=== PATIENT | female | born 1975 | race Caucasian/White ===

== ENCOUNTER 2017-01-08 14:20 | Emergency (ER) | payer BC ==
[~2017-01-08] VITALS: Ht 162.6 cm; Wt 95.7 kg
[~2017-01-08 14:20] MED LIST: ASPI81TA50 PO; CHOL500016 PO; DULA0.75 SQ; IBUP800T PO; INSU100I17 SQ; INSU300I SQ; LISI10TA2 PO; METF500T4 PO; NAPR550T3 PO; OXYB10TA PO; PRAV10TA2 PO; PROM25TA10 PO; SUCR1TAB29 PO; VENL37.5 PO; VENL37.56 PO; ZOLP10TA PO
--- NOTE | 2017-01-08 14:57 | EKG ---
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
--- NOTE | 2017-01-08 14:59 | ED.ADGEN ---
Past History Past Medical History: Dementia, Hypertension Past Surgical History: , Hysterectomy Alcohol Use: None Drug Use: None Adult General Chief Complaint Chief Complaint "doesn't feel good" HPI HPI Patient is a 41 year old female who presents with 1 week of symptoms including cough, sore throat, epigastric pressure with laying flat and cough. She denies known fevers, reports nausea without vomiting. No change in BM, no significant headaches. Denies any fevers. Seen at [facility] on Friday and diagnosed with influenza (reports rapid flu was negative). She initially felt better after the tamiflu, but then again worsened the following day. The codeine cough medicine did not significantly help her cough. Review of Systems Review of Systems Constitutional: Denies fever or chills [] Eyes: Denies change in visual acuity, redness, or eye pain [] HENT: per hpi Respiratory: Denies shortness of breath [] Cardiovascular: per hpi GI: Denies vomiting, bloody stools or diarrhea [] : Denies dysuria or hematuria [] Musculoskeletal: Denies back pain or joint pain [] Integument: Denies rash or skin lesions [] Neurologic: Denies focal weakness or sensory changes [] Current Medications Current Medications Current Medications Medications (Trade) Dose Ordered Sig/Shweta Start Time Stop Time Status Last Admin Dose Admin Ketorolac Tromethamine 30 mg 30 mg 1X ONCE 01/08/17 15:15 01/08/17 15:16 DC 01/08/17 15:10 30 MG Sodium Chloride (Iv Sodium Chloride 0.9% 1,000ml) 1,000 ml @ 1,000 mls/hr 1X ONCE 01/08/17 15:15 01/08/17 16:14 01/08/17 15:11 1,000 MLS/HR Allergies Allergies Allergies Coded Allergies Type Severity Reaction Last Updated Verified meperidine Allergy Intermediate Itching 07/18/16 Yes morphine Allergy Intermediate Itching 07/18/16 Yes Uncoded Allergies Type Severity Reaction Last Updated Verified unknown old migrane med Allergy Unknown Unknown 07/11/16 Physical Exam Physical Exam Constitutional: Well developed, well nourished, no acute distress, ill-appearing , non-toxic appearance. obese HENT: Normocephalic, atraumatic, bilateral external ears normal, oropharynx slightly dry, uvula rises midline, no edema, no oral exudates, nose normal. [] Eyes: PERRLA, EOMI, conjunctiva normal, no discharge. [] Neck: Normal range of motion, no tenderness, supple, no stridor. [] Cardiovascular:Heart rate regular at 95 bpm with regular rhythm, no murmur [] Lungs & Thorax: Bilateral breath sounds clear to auscultation , no wheeze, crackles or rhonchi Abdomen: Bowel sounds normal, soft, no tenderness, no masses, no pulsatile masses, no guarding or peritoneal signs Skin: Warm, dry, no erythema, no rash. [] Back: No tenderness, no CVA tenderness. [] Extremities: No tenderness, no cyanosis, no clubbing, ROM intact, no edema. [] Neurologic: Alert and oriented X 3, normal motor function, normal sensory function, no focal deficits noted. [] Current Patient Data Vital Signs Vital Signs Date Time Temp Pulse Resp B/P Pulse Ox O2 Delivery O2 Flow Rate FiO2 01/08/17 14:45 98.2 115 20 98 Lab Results Laboratory Tests Test 01/08/17 15:04 White Blood Count 4.9x10^3/uL (4.0-11.0) Red Blood Count 4.44x10^6/uL (3.50-5.40) Hemoglobin 12.6g/dL (12.0-15.5) Hematocrit 38.1% (36.0-47.0) Mean Corpuscular Volume 86fL (79-100) Mean Corpuscular Hemoglobin 28pg (25-35) Mean Corpuscular Hemoglobin Concent 33g/dL (31-37) Red Cell Distribution Width 14.3% (11.5-14.5) Platelet Count 244x10^3/uL (140-400) Neutrophils (%) (Auto) 52% (31-73) Lymphocytes (%) (Auto) 37% (24-48) Monocytes (%) (Auto) 8% (0-9) Eosinophils (%) (Auto) 2% (0-3) Basophils (%) (Auto) 1% (0-3) Neutrophils # (Auto) 2.6x10^3uL (1.8-7.7) Lymphocytes # (Auto) 1.8x10^3/uL (1.0-4.8) Monocytes # (Auto) 0.4x10^3/uL (0.0-1.1) Eosinophils # (Auto) 0.1x10^3/uL (0.0-0.7) Basophils # (Auto) 0.0x10^3/uL (0.0-0.2) Sodium Level 139mmol/L (136-145) Potassium Level 4.3mmol/L (3.5-5.1) Chloride Level 100mmol/L (98-107) Carbon Dioxide Level 23mmol/L (21-32) Anion Gap 16 (6-14) H Blood Urea Nitrogen 9mg/dL (7-20) Creatinine 0.8mg/dL (0.6-1.0) Estimated GFR (Cockcroft-Gault) 78.7 BUN/Creatinine Ratio 11 (6-20) Glucose Level 297mg/dL (70-99) H Calcium Level 9.2mg/dL (8.5-10.1) Total Bilirubin 0.6mg/dL (0.2-1.0) Aspartate Amino Transferase (AST) Pending Alanine Aminotransferase (ALT) 54U/L (14-59) Alkaline Phosphatase 119U/L (46-116) H Total Protein 7.4g/dL (6.4-8.2) Albumin 4.1g/dL (3.4-5.0) Albumin/Globulin Ratio 1.2 (1.0-1.7) Lipase 142U/L (73-393) EKG EKG 91 bpm, sinus, normal axis, normal intervals, no ST elevation or depression, T waves nonischemic. Interpreted by me.[] Radiology/Procedures Radiology/Procedures CXR 2 view: IMPRESSION: No acute cardiopulmonary abnormality is detected. Course & Med Decision Making Course & Med Decision Making Pertinent Labs and Imaging studies reviewed. (See chart for details) Pt given IV fluids and toradol. IV labs and urine ordered. Pt feeling better. No significant findings on ED workup. Pt instructed to stay hydrated, wash hands frequently, f/u with PCP Final Impression Final Impression Viral Syndrome[] Problems: Dragon Disclaimer Dragon Disclaimer This electronic medical record was generated, in whole or in part, using a voice recognition dictation system. MARIPOSA ANDINO MD Jan 08, 2017 14:59
[2017-01-08] MEDS ORDERED: KETOROLAC 30 MG/ML VIAL. IV ONE (15:15)
[2017-01-08] MEDS ORDERED: IV NORMAL SALINE 1,000ML 1,000 ML IV ONE (15:15)
--- NOTE | 2017-01-08 15:20 | RAD ---
Chest, 2 views, 01/08/2017: History: Cough The heart size and pulmonary vascularity are normal. No pulmonary infiltrates are seen. There is no evidence of pleural fluid. IMPRESSION: No acute cardiopulmonary abnormality is detected.
[2017-01-08 15:25] LABS: BASO % 1 % (0-3); EOS # 0.1 x10^3/uL (0.0-0.7); EOS % 2 % (0-3); HEMATOCRIT 38.1 % (36.0-47.0); HEMOGLOBIN 12.6 g/dL (12.0-15.5); LYMPH # 1.8 x10^3/uL (1.0-4.8); LYMPH % 37 % (24-48); MEAN CORPUSCULAR HEMOGLOBIN 28 pg (25-35); MEAN CORPUSCULAR HGB CONC 33 g/dL (31-37); MEAN CORPUSCULAR VOLUME 86 fL (79-100); MONO # 0.4 x10^3/uL (0.0-1.1); MONO % 8 % (0-9); NEUT # 2.6 x10^3uL (1.8-7.7); NEUT % 52 % (31-73); PLATELET COUNT 244 x10^3/uL (140-400); RED BLOOD COUNT 4.44 x10^6/uL (3.50-5.40); RED CELL DISTRIBUTION WIDTH 14.3 % (11.5-14.5); WHITE BLOOD COUNT 4.9 x10^3/uL (4.0-11.0)
[2017-01-08 15:34] LABS: ALBUMIN 4.1 g/dL (3.4-5.0); ALBUMIN/GLOBULIN RATIO 1.2 (1.0-1.7); CALCIUM 9.2 mg/dL (8.5-10.1); CREATININE 0.8 mg/dL (0.6-1.0); GFR 78.7; POTASSIUM 4.3 mmol/L (3.5-5.1); TOTAL BILIRUBIN 0.6 mg/dL (0.2-1.0); TOTAL PROTEIN 7.4 g/dL (6.4-8.2)
[2017-01-08 15:58] VITALS: BP 142/78
[2017-01-08 16:07] LABS: BILIRUBIN,URINE NEG (NEG); CLARITY,URINE CLEAR; COLOR,URINE YELLOW
[2017-01-08 16:09] LABS: NITRITE,URINE POS (NEG); UROBILINOGEN,URINE 0.2 mg/dL (0.2 mg/dL)
[2017-01-08 16:10] LABS: GLUCOSE,URINE 500 mg/dL (NEG)
== END 2017-01-08 16:11 | disposition home or self-care (01) ==
LOC: ER 14:20
DX: B34.9 Viral infection, unspecified (principal); I10 Essential (primary) hypertension; Z90.710 Acquired absence of both cervix and uterus; Z88.5 Allergy status to narcotic agent; Z88.8 Allergy status to other drugs, medicaments and biological substances
CPT/HCPCS: 36415; 71020; 80053; 81003; 83690; 85027; 93005; 96361; 96374; 99285; J1885; J7030

== ENCOUNTER → 2017-05-06 | Outpatient (CLI) | payer BC ==
[~2017-05-06] MED LIST changes: -IBUP800T PO; +IBUP800T19 PO; +NAPR-677 PO; -NAPR550T3 PO; -SUCR1TAB29 PO; +SUCR1TAB35 PO
--- NOTE | 2017-05-06 16:10 | RAD ---
INDICATION: RIGHT LOWER LEG PAIN X 3 DAYS, NO INJURY COMPARISON: None. IMPRESSION: Right lower le views obtained without definite acute fracture or dislocation of tibia or fibula. There is mild step-off at the calcaneal cuboid and the talonavicular joint. Could be positional or degenerative in nature but would correlate with pain in the region to ensure that there is not a pathologic subluxation.
== END | disposition home or self-care (01) ==
LOC: DXRADRC 15:55
PROVIDERS: ATTEND Physician Assistant
DX: M79.661 Pain in right lower leg (principal)
CPT/HCPCS: 73590

== ENCOUNTER → 2018-02-06 | Outpatient (CLI) | payer BC ==
--- NOTE | 2018-02-06 15:21 | RAD ---
Two-view abdominal series History: Abdominal discomfort Upright and supine AP view abdomen and pelvis There is air and stool scattered throughout the colon. There is a paucity of small bowel gas. There is no free air. Impression: Abnormal nonobstructive bowel gas pattern consistent with constipation.
== END | disposition home or self-care (01) ==
LOC: PMG 09:47
PROVIDERS: ATTEND Physician Assistant
DX: R11.0 Nausea (principal); E11.65 Type 2 diabetes mellitus with hyperglycemia; I10 Essential (primary) hypertension; E78.00 Pure hypercholesterolemia, unspecified; Z79.4 Long term (current) use of insulin
CPT/HCPCS: 74021

== ENCOUNTER 2018-04-12 13:42 | Emergency (ER) | payer BC ==
[~2018-04-12] VITALS: Ht 162.6 cm; Wt 89.8 kg
[~2018-04-12 13:42] MED LIST changes: -METF500T4 PO; +METF500T5 PO
[2018-04-12 13:55] VITALS: BP 132/100
[2018-04-12] MEDS ORDERED: IV NORMAL SALINE 1,000ML 1,000 ML IV SCH (13:58)
[2018-04-12] MEDS ORDERED: 0.9 % SODIUM CHLORIDE 10 ML DISP.SYRIN. IV PRN (14:00)
[2018-04-12] MEDS ORDERED: ONDANSETRON PF 4 MG/2 ML VIAL. IV ONE (14:00)
[2018-04-12] MEDS ORDERED: KETOROLAC 30 MG/ML VIAL. IV ONE (14:15)
[2018-04-12 14:36] LABS: BASO % 0 % (0-3); EOS # 0.1 x10^3/uL (0.0-0.7); EOS % 2 % (0-3); HEMATOCRIT 45.3 % (36.0-47.0); HEMOGLOBIN 15.3 g/dL (12.0-15.5); LYMPH # 1.5 x10^3/uL (1.0-4.8); LYMPH % 29 % (24-48); MEAN CORPUSCULAR HEMOGLOBIN 29 pg (25-35); MEAN CORPUSCULAR HGB CONC 34 g/dL (31-37); MEAN CORPUSCULAR VOLUME 85 fL (79-100); MONO # 0.4 x10^3/uL (0.0-1.1); MONO % 8 % (0-9); NEUT # 3.2 x10^3uL (1.8-7.7); NEUT % 61 % (31-73); PLATELET COUNT 248 x10^3/uL (140-400); RED BLOOD COUNT 5.33 x10^6/uL (3.50-5.40); RED CELL DISTRIBUTION WIDTH 13.4 % (11.5-14.5); WHITE BLOOD COUNT 5.2 x10^3/uL (4.0-11.0)
[2018-04-12 14:53] LABS: BACTERIA,URINE MOD /HPF (0-FEW); BILIRUBIN,URINE NEG (NEG); CLARITY,URINE CLEAR; COLOR,URINE YELLOW; GLUCOSE,URINE >=1000 mg/dL (NEG); NITRITE,URINE POS (NEG); RBC,URINE 0 /HPF (0-2); SQUAMOUS EPITHELIAL CELL,UR MOD /LPF; UROBILINOGEN,URINE 0.2 mg/dL (0.2 mg/dL)
[2018-04-12 14:54] LABS: ALBUMIN 3.7 g/dL (3.4-5.0); CALCIUM 8.8 mg/dL (8.5-10.1); CREATININE 1.2 mg/dL (0.6-1.0); POTASSIUM 4.2 mmol/L (3.5-5.1); TOTAL BILIRUBIN 0.8 mg/dL (0.2-1.0); TOTAL PROTEIN 7.3 g/dL (6.4-8.2); YEAST,URINE PRESENT /HPF
[2018-04-12] MEDS ORDERED: INSULIN LISPRO 300 UNITS/3 ML INSULN.PEN. SQ ONE (15:05)
[2018-04-12] MEDS ORDERED: IV NORMAL SALINE 1,000ML 1,000 ML IV ONE (15:15)
[2018-04-12] MEDS ORDERED: INSULIN REGULAR 100 UNIT/ML 3ML VIAL. IV ONE (15:15)
[2018-04-12] MEDS ORDERED: ONDA4TAB10 SL (16:00)
[2018-04-12] MEDS ORDERED: TRAM-48 PO (16:00)
--- NOTE | 2018-04-12 16:00 | PHYS DOC ---
Past History Past Medical History: Diabetes, Hypertension Past Surgical History: , Hysterectomy Smoking: Non-smoker Alcohol Use: None Drug Use: None Adult General Chief Complaint Chief Complaint: ABDOMINAL PAIN HPI HPI 41-year-old female patient with history of diabetes mellitus and hypertension and chronic abdominal pain for more than 6 months complaining of upper abdominal pain as a constant sharp pain with radiation to her back and associated with nausea and episodes of diarrhea for the last 4 days. Patient states she had more than 10 episodes of diarrhea every day without fever and chills, chest pain, shortness of breath, urinary symptoms, that didn't get better with [id number] medication. Patient states her abdominal pain and diarrhea stopped her previous episodes of abdominal pain. Review of Systems Review of Systems Constitutional: Denies fever or chills [] Eyes: Denies change in visual acuity, redness, or eye pain [] HENT: Denies nasal congestion or sore throat [] Respiratory: Denies cough or shortness of breath [] Cardiovascular: No additional information not addressed in HPI [] GI: Reports abdominal pain, nausea, diarrhea [] : Denies dysuria or hematuria [] Musculoskeletal: Denies back pain or joint pain [] Integument: Denies rash or skin lesions [] Neurologic: Denies headache, focal weakness or sensory changes [] Endocrine: Denies polyuria or polydipsia [] All other systems were reviewed and found to be within normal limits, except as documented in this note. Current Medications Current Medications Current Medications Medications (Trade) Dose Ordered Sig/Shweta Start Time Stop Time Status Last Admin Dose Admin Insulin Human Lispro (HumaLOG) 300 units STK-MED ONCE 04/12/18 15:05 04/12/18 15:06 DC Insulin Human Regular (HumuLIN R VIAL) 10 unit 1X ONCE 04/12/18 15:15 04/12/18 15:16 DC 04/12/18 15:15 10 UNIT Ketorolac Tromethamine (Toradol) 30 mg 1X ONCE 04/12/18 14:15 04/12/18 14:16 DC 04/12/18 14:15 30 MG Ondansetron HCl (Zofran) 4 mg 1X ONCE 04/12/18 14:00 04/12/18 14:07 DC 04/12/18 14:00 4 MG Sodium Chloride 1,000 ml @ 1,000 mls/hr 1X ONCE 04/12/18 15:15 04/12/18 16:14 04/12/18 15:08 1,000 MLS/HR Sodium Chloride (Normal Saline Flush) 10 ml QSHIFT PRN 04/12/18 14:00 04/12/18 14:23 10 ML Allergies Allergies Allergies Coded Allergies Type Severity Reaction Last Updated Verified meperidine Allergy Intermediate Itching 07/18/16 Yes morphine Allergy Intermediate Itching 07/18/16 Yes Uncoded Allergies Type Severity Reaction Last Updated Verified unknown old migrane med Allergy Unknown Unknown 07/11/16 Physical Exam Physical Exam Constitutional: Well developed, well nourished, mild distress, non-toxic appearance. [] HENT: Normocephalic, atraumatic, oropharynx dry, no oral exudates, nose normal. [] Eyes: PERRLA, EOMI, conjunctiva normal, no discharge. [] Neck: Normal range of motion, no tenderness, supple, no stridor. [] Cardiovascular:Heart rate regular rhythm, no murmur [] Lungs & Thorax: Bilateral breath sounds clear to auscultation [] Abdomen: Bowel sounds normal, soft, no tenderness, no masses, no pulsatile masses. [] Skin: Warm, dry, no erythema, no rash. [] Back: No tenderness, no CVA tenderness. [] Extremities: No tenderness, no cyanosis, no clubbing, ROM intact, no edema. [] Neurologic: Alert and oriented X 3, normal motor function, normal sensory function, no focal deficits noted. [] Psychologic: Affect normal, judgement normal, mood normal. [] Current Patient Data Vital Signs Vital Signs Date Time Temp Pulse Resp B/P (MAP) Pulse Ox O2 Delivery O2 Flow Rate FiO2 04/12/18 13:55 98.4 108 20 97 Room Air Lab Results Laboratory Tests Test 04/12/18 14:16 04/12/18 15:03 04/12/18 15:44 White Blood Count 5.2 x10^3/uL (4.0-11.0) Red Blood Count 5.33 x10^6/uL (3.50-5.40) Hemoglobin 15.3 g/dL (12.0-15.5) Hematocrit 45.3 % (36.0-47.0) Mean Corpuscular Volume 85 fL (79-100) Mean Corpuscular Hemoglobin 29 pg (25-35) Mean Corpuscular Hemoglobin Concent 34 g/dL (31-37) Red Cell Distribution Width 13.4 % (11.5-14.5) Platelet Count 248 x10^3/uL (140-400) Neutrophils (%) (Auto) 61 % (31-73) Lymphocytes (%) (Auto) 29 % (24-48) Monocytes (%) (Auto) 8 % (0-9) Eosinophils (%) (Auto) 2 % (0-3) Basophils (%) (Auto) 0 % (0-3) Neutrophils # (Auto) 3.2 x10^3uL (1.8-7.7) Lymphocytes # (Auto) 1.5 x10^3/uL (1.0-4.8) Monocytes # (Auto) 0.4 x10^3/uL (0.0-1.1) Eosinophils # (Auto) 0.1 x10^3/uL (0.0-0.7) Basophils # (Auto) 0.0 x10^3/uL (0.0-0.2) Urine Collection Type Unknown Urine Color Yellow Urine Clarity Clear Urine pH 5.5 Urine Specific [place] <=1.005 Urine Protein Neg (NEG-TRACE) Urine Glucose (UA) >=1000 mg/dL (NEG) Urine Ketones (Stick) 40 mg/dL (NEG) Urine Blood Neg (NEG) Urine Nitrite Pos (NEG) Urine Bilirubin Neg (NEG) Urine Urobilinogen Dipstick 0.2 mg/dL (0.2 mg/dL) Urine Leukocyte Esterase Neg (NEG) Urine RBC 0 /HPF (0-2) Urine WBC 5-10 /HPF (0-4) Urine Squamous Epithelial Cells Mod /LPF Urine Bacteria Mod /HPF (0-FEW) Urine Yeast Present /HPF Sodium Level 130 mmol/L (136-145) L Potassium Level 4.2 mmol/L (3.5-5.1) Chloride Level 94 mmol/L (98-107) L Carbon Dioxide Level 26 mmol/L (21-32) Anion Gap 10 (6-14) Blood Urea Nitrogen 13 mg/dL (7-20) Creatinine 1.2 mg/dL (0.6-1.0) H Estimated GFR (Cockcroft-Gault) 49.0 BUN/Creatinine Ratio 11 (6-20) Glucose Level 469 mg/dL (70-99) H Calcium Level 8.8 mg/dL (8.5-10.1) Total Bilirubin 0.8 mg/dL (0.2-1.0) Aspartate Amino Transferase (AST) 25 U/L (15-37) Alanine Aminotransferase (ALT) 52 U/L (14-59) Alkaline Phosphatase 122 U/L (46-116) H Total Protein 7.3 g/dL (6.4-8.2) Albumin 3.7 g/dL (3.4-5.0) Albumin/Globulin Ratio 1.0 (1.0-1.7) Lipase 139 U/L (73-393) Glucose (Fingerstick) 415 mg/dL (70-99) H 295 mg/dL (70-99) H EKG EKG [] Radiology/Procedures Radiology/Procedures [] Course & Med Decision Making Course & Med Decision Making Pertinent Labs studies reviewed. (See chart for details) Evaluation of patient in ER showed 41-year-old male patient with complaining of episodes of diarrhea and abdominal pain for several days like her previous episodes of abdominal pain and diarrhea. Patient had blood sugar of more than 400 and treated with IV fluid, Toradol, Zofran and insulin and her blood sugar gradually dropped to 95. Patient taking Naprosyn for her chronic pain and plan to change it to Ultram. Patient psychiatric to follow with her physician regarding chronic abdominal pain. Dragon Disclaimer Dragon Disclaimer This electronic medical record was generated, in whole or in part, using a voice recognition dictation system. Departure Departure: Impression: Primary Impression: Hyperglycemia without ketosis Additional Impressions: Nausea and vomiting Abdominal pain Uncontrolled diabetes mellitus Disposition: HOME, SELF-CARE (At 1555) Condition: IMPROVED Referrals: TARSHA MULLINS (PCP) Patient Instructions: Diet for Diarrhea, Adult, Hyperglycemia, Viral Gastroenteritis Additional Instructions: Drink plenty of liquids Follow-up with your primary care physician in 3-5 days Return to ER if not getting better Scripts Tramadol Hcl (ULTRAM) 50 Mg Tablet 50 MG PO PRN Q6HRS PRN for PAIN, #20 TAB Prov: GERARD MARIN MD 04/12/18 Ondansetron (ZOFRAN ODT) 4 Mg Tab.rapdis 1 TAB SL Q8HRS, #15 TAB Prov: GERARD MARIN MD 04/12/18 Problem Qualifiers GERARD MARIN MD Apr 12, 2018 16:00
== END 2018-04-12 16:00 | disposition home or self-care (01) ==
LOC: ER 13:42
DX: E11.65 Type 2 diabetes mellitus with hyperglycemia (principal); I10 Essential (primary) hypertension; Z88.5 Allergy status to narcotic agent; Z88.8 Allergy status to other drugs, medicaments and biological substances
CPT/HCPCS: 36415; 80053; 81001; 82947; 83690; 85025; 96361; 96374; 96375; 99285; J1815; J1885; J2405; 87086; J7030

== ENCOUNTER 2018-10-12 19:57 | Emergency (ER) | payer BC ==
[~2018-10-12] VITALS: Ht 160 cm; Wt 90.5 kg
[~2018-10-12 19:57] MED LIST changes: +METF500T16 PO; -METF500T5 PO; +ONDA4TAB10 SL; +TRAM-48 PO
[2018-10-12 20:00] VITALS: BP 139/87
--- NOTE | 2018-10-12 20:31 | PHYS DOC ---
Past History Past Medical History: Diabetes, Hypertension Past Surgical History: , Hysterectomy Smoking: Non-smoker Alcohol Use: None Drug Use: None Adult General Chief Complaint Chief Complaint: SHORTNESS OF BREATH HPI HPI 42-year-old female presents with chest pain. Patient states that she started to have some left scapular discomfort about 2-1/2 hours ago. She describes it as a pressure sensation. About one hour ago, she began have a central chest pressure 7 out of 10 at its worst. It is currently 6 out of 10. She had shortness of breath and a feeling of diaphoresis briefly when it started. The patient was at [employer] at the time. She no longer has diaphoresis, but admits to feeling slightly short of breath. She has had viral URI symptoms over the last 1 week. She denies fever or chills. No history of cardiac disease. She takes lisinopril for hypertension. Review of Systems Review of Systems Constitutional: Denies fever or chills [] Eyes: Denies change in visual acuity, redness, or eye pain [] HENT: Denies nasal congestion or sore throat [] Respiratory: mild shortness of breath [] Cardiovascular: No additional information not addressed in HPI [] GI: Denies abdominal pain, nausea, vomiting, bloody stools or diarrhea [] : Denies dysuria or hematuria [] Musculoskeletal: Left scapular pain[] Integument: Denies rash or skin lesions [] Neurologic: Denies headache, focal weakness or sensory changes [] Endocrine: Denies polyuria or polydipsia [] All other systems were reviewed and found to be within normal limits, except as documented in this note. Allergies Allergies Allergies Coded Allergies Type Severity Reaction Last Updated Verified meperidine Allergy Intermediate Itching 07/18/16 Yes morphine Allergy Intermediate Itching 07/18/16 Yes Uncoded Allergies Type Severity Reaction Last Updated Verified unknown old migrane med Allergy Unknown Unknown 07/11/16 Physical Exam Physical Exam Constitutional: Well developed, obese, well nourished, no acute distress, non- toxic appearance. [] HENT: Normocephalic, atraumatic, bilateral external ears normal, oropharynx moist, no oral exudates, nose normal. [] Eyes: PERRLA, EOMI, conjunctiva normal, no discharge. [] Neck: Normal range of motion, no tenderness, supple, no stridor. [] Cardiovascular:Heart rate regular rhythm, no murmur [] Lungs & Thorax: Bilateral breath sounds clear to auscultation [] Abdomen: Bowel sounds normal, soft, no tenderness, no masses, no pulsatile masses. [] Skin: Warm, dry, no erythema, no rash. [] Back: No tenderness, no CVA tenderness. [] Extremities: No tenderness, no cyanosis, no clubbing, ROM intact, no edema. [] Neurologic: Alert and oriented X 3, normal motor function, normal sensory function, no focal deficits noted. [] Psychologic: Affect normal, judgement normal, mood normal. [] EKG EKG Sinus rhythm, rate 86, leftward axis, no ST elevations or depressions.[] Radiology/Procedures Radiology/Procedures [] Impressions: Primary interpretation: Chest x-ray no acute findings. Course & Med Decision Making Course & Med Decision Making Pertinent Labs and Imaging studies reviewed. (See chart for details) The patient's labs are remarkable for a glucose of 309, calcium 7.5, potassium 3.2. Her anion gap is 16. The patient has been borderline diabetic for some time. She has discussed medication with her PCP but had not started yet. She will discuss this further with her PCP. Her troponin is negative. Her EKG is unremarkable. Her pain has improved to 2 out of 10. She would like to go home. I discussed with the patient that the best thing to do would be to admit her for chest pain rule out. She states verbal understanding of this, but tomorrow is Chris and she would like to go home. If her condition worsens, she will return to the emergency room. [] Dragon Disclaimer Dragon Disclaimer This electronic medical record was generated, in whole or in part, using a voice recognition dictation system. Departure Departure: Referrals: TARSHA MULLINS (PCP) LILIANA NEAL DO Oct 12, 2018 20:31
[2018-10-12 21:18] LABS: BASO % 1 % (0-3); EOS # 0.1 x10^3/uL (0.0-0.7); EOS % 1 % (0-3); LYMPH # 2.2 x10^3/uL (1.0-4.8); LYMPH % 40 % (24-48); MEAN CORPUSCULAR HEMOGLOBIN 28 pg (25-35); MEAN CORPUSCULAR HGB CONC 33 g/dL (31-37); MEAN CORPUSCULAR VOLUME 85 fL (79-100); MONO # 0.4 x10^3/uL (0.0-1.1); MONO % 8 % (0-9); NEUT # 2.7 x10^3uL (1.8-7.7); NEUT % 50 % (31-73); PLATELET COUNT 218 x10^3/uL (140-400); RED BLOOD COUNT 4.97 x10^6/uL (3.50-5.40); RED CELL DISTRIBUTION WIDTH 13.4 % (11.5-14.5); WHITE BLOOD COUNT 5.4 x10^3/uL (4.0-11.0)
--- NOTE | 2018-10-12 21:22 | EKG ---
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
[2018-10-12] MEDS: ASPIRIN 81 MG TAB.CHEW PO ONE (21:23)
[2018-10-12 21:28] LABS: BILIRUBIN,URINE NEG (NEG); CLARITY,URINE CLEAR; COLOR,URINE COLORLESS; GLUCOSE,URINE >=1000 mg/dL (NEG); NITRITE,URINE NEG (NEG); UROBILINOGEN,URINE 0.2 mg/dL (0.2 mg/dL)
[2018-10-12 21:29] LABS: BACTERIA,URINE FEW /HPF (0-FEW); SQUAMOUS EPITHELIAL CELL,UR MOD /LPF; YEAST,URINE PRESENT /HPF
[2018-10-12 22:12] LABS: CALCIUM 7.5 mg/dL (8.5-10.1); CREATININE 0.7 mg/dL (0.6-1.0); GFR 91.3; POTASSIUM 3.2 mmol/L (3.5-5.1); TOTAL BILIRUBIN 0.3 mg/dL (0.2-1.0); TOTAL PROTEIN 5.9 g/dL (6.4-8.2)
--- NOTE | 2018-10-13 01:16 | RAD ---
Chest PA and lateral 10/12/2018. Reason for exam: Shortness of breath and back pain. Comparison is made with a study of 01/08/2017. No infiltrate or effusion is seen. Heart size and pulmonary vascularity appear normal. IMPRESSION: No acute disease. Electronically signed by: Louis Norris Jr., MD (10/13/2018 1:13 AM) [id number]
== END 2018-10-12 22:40 | disposition home or self-care (01) ==
LOC: ER 19:57
DX: R07.89 Other chest pain (principal); R06.02 Shortness of breath; M25.512 Pain in left shoulder; R61 Generalized hyperhidrosis; E11.9 Type 2 diabetes mellitus without complications; I10 Essential (primary) hypertension; Z88.5 Allergy status to narcotic agent; Z88.8 Allergy status to other drugs, medicaments and biological substances
CPT/HCPCS: 36415; 71046; 80053; 81001; 84484; 85025; 87086; 93005; 99284

== ENCOUNTER → 2019-02-10 | Outpatient (CLI) | payer BC ==
--- NOTE | 2019-02-10 14:20 | RAD ---
2 views of the right foot without comparison for no known injury, pain for one month of the lateral side. FINDINGS: There is no fracture, dislocation, or acute osseous abnormality identified. Joints and soft tissues are grossly unremarkable. No radiopaque foreign bodies are seen. IMPRESSION: 1. No acute osseous abnormality of the right foot. Electronically signed by: Allan Fischer MD (02/10/2019 2:17 PM) [id number]
== END | disposition home or self-care (01) ==
LOC: PMG 10:23
PROVIDERS: ATTEND Registered Nurse
DX: M79.671 Pain in right foot (principal)
CPT/HCPCS: 73620

== ENCOUNTER → 2019-04-08 | Outpatient (CLI) | payer BC ==
--- NOTE | 2019-04-08 16:41 | RAD ---
Pelvis with left hip, 3 views, 04/08/2019: HISTORY: Hip pain radiating down the leg The hip joints are well-maintained. No fracture or dislocation is identified. There is mild degenerative change at the symphysis pubis. IMPRESSION: No acute pelvic or left hip abnormality is detected. Electronically signed by: Lenny Shukla MD (04/08/2019 4:38 PM) [facility]
== END | disposition home or self-care (01) ==
LOC: PMG 10:34
PROVIDERS: ATTEND Registered Nurse
DX: M16.12 Unilateral primary osteoarthritis, left hip (principal)
CPT/HCPCS: 73502

== ENCOUNTER 2019-09-29 18:52 | Emergency (ER) | payer BC ==
[~2019-09-29] VITALS: Ht 160 cm; Wt 99.8 kg
[~2019-09-29 18:52] MED LIST changes: -OXYB10TA PO; +OXYB10TA2 PO
[2019-09-29 19:04] VITALS: BP 147/83
--- NOTE | 2019-09-29 19:07 | PHYS DOC ---
Past History Past Medical History: Anxiety, Depression, Hypertension, Other Past Surgical History: , Hysterectomy Smoking: Non-smoker Alcohol Use: None Drug Use: None Adult General Chief Complaint Chief Complaint: FOOT INJURY PAIN HPI HPI Patient is a 43-year-old female who presents to the emergency department for evaluation. 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 She is not able to put full pressure on the toe or foot secondary to pain, but denies any other injury. She denies any numbness or weakness. Palpation and ambulation worsen her pain. There are no alleviating factors to her symptoms. Review of Systems Review of Systems Musculoskeletal: Denies back pain or joint pain, other than as noted in the history of present illness [] Integument: Denies rash or skin lesions [] Neurologic: Denies headache, focal weakness or sensory changes [] Allergies Allergies Allergies Coded Allergies Type Severity Reaction Last Updated Verified acetaminophen Allergy Intermediate Rash 10/12/18 Yes meperidine Allergy Intermediate Itching 10/12/18 Yes morphine Allergy Intermediate Itching 10/12/18 Yes oxycodone Allergy Intermediate Rash 10/12/18 Yes Uncoded Allergies Type Severity Reaction Last Updated Verified unknown old migrane med Allergy Unknown Unknown 07/11/16 Physical Exam Physical Exam PHYSICAL EXAM: HEENT: Atruamatic NECK: Supple, normal ROM, non-tender. CARDIAC: Regular Rate and Rhythm LUNGS: Clear Bilaterally EXTREMITIES: There is tenderness to palpation and mild bruising and soft tissue swelling noted to the dorsum of the left foot, medially, in the area of the first and second metatarsal phalangeal joints and somewhat proximal to this. There is mild tenderness to palpation of the left great toe as well. There is no crepitus. The remainder of the toes, foot, ankle, atraumatic. EKG EKG [] Radiology/Procedures Radiology/Procedures ER physician preliminary foot x-ray interpretation: No acute abnormality[] Course & Med Decision Making Course & Med Decision Making Pertinent Imaging studies reviewed. (See chart for details) []Patient remains stable. I discussed test results, the need for close follow- up, and return precautions. Dragon Disclaimer Dragon Disclaimer This electronic medical record was generated, in whole or in part, using a voice recognition dictation system. Departure Departure: Impression: Primary Impression: Contusion, foot Disposition: 01 HOME, SELF-CARE Condition: STABLE Referrals: FRANK JOYNERC (PCP) Patient Instructions: Contusion, Foot Contusion ZITA CAICEDO MD Sep 29, 2019 19:06
--- NOTE | 2019-09-29 23:17 | RAD ---
Indication: Injury and pain TECHNIQUE: 3 views of the left foot COMPARISON: None FINDINGS: No acute fracture or dislocation. Small plantar calcaneal spur. No arthritic changes. IMPRESSION: As above. Electronically signed by: Jd Estrada DO (09/29/2019 11:14 PM) [facility]
== END 2019-09-29 19:33 | disposition home or self-care (01) ==
LOC: ER 18:52
DX: S90.32XA Contusion of left foot, initial encounter (principal); I10 Essential (primary) hypertension; Z88.5 Allergy status to narcotic agent; Z88.8 Allergy status to other drugs, medicaments and biological substances; W20.8XXA Other cause of strike by thrown, projected or falling object, initial encounter; Y93.89 Activity, other specified; Y92.89 Other specified places as the place of occurrence of the external cause; Y99.0 Civilian activity done for income or pay
CPT/HCPCS: 73630; 99284

== ENCOUNTER 2020-07-03 17:00 | Emergency (ER) | payer BC ==
[~2020-07-03] VITALS: Ht 160 cm; Wt 108.0 kg
[~2020-07-03 17:00] MED LIST changes: -OXYB10TA2 PO; +OXYB10TA26 PO; +VENL-109 PO; -VENL37.56 PO
[2020-07-03 17:11] VITALS: BP 123/92
--- NOTE | 2020-07-03 17:23 | PHYS DOC ---
Past History Past Medical History: Anxiety, Depression, Hypertension, Other Past Surgical History: , Hysterectomy Smoking: Non-smoker Alcohol Use: None Drug Use: None General Adult EDM: Chief Complaint: Fall with upper extremity pain HPI: HPI: This is a 44-year-old female who presents to the ER secondary complaint of left arm pain. Patient states that she fell 6 weeks ago while climbing on her dryer in order to get to a shelf. She landed on her left arm. Since that time she has been unable to raise her arm above her head secondary to pain in the pos terior and superior aspect of the left shoulder. She also has pain in the lateral aspect of her left elbow and ongoing wrist pain as well. She has not seen a doctor and has been taking Flexeril for some relief. She has no numbness or tingling. Her pain is mild to moderate and worse with movement. She became concerned today because she feels as though her arm is swelling. Review of Systems: Review of Systems: All other systems negative except as documented in HPI Heart Score: Risk Factors: Risk Factors: DM, Current or recent (<one month) smoker, HTN, HLP, family history of CAD, obesity. Risk Scores: Score 0 - 3: 2.5% MACE over next 6 weeks - Discharge Home Score 4 - 6: 20.3% MACE over next 6 weeks - Admit for Clinical Observation Score 7 - 10: 72.7% MACE over next 6 weeks - Early Invasive Strategies Allergies: Allergies: Allergies Coded Allergies Type Severity Reaction Last Updated Verified acetaminophen Allergy Intermediate Rash 07/03/20 Yes meperidine Allergy Intermediate Itching 07/03/20 Yes morphine Allergy Intermediate Itching 07/03/20 Yes oxycodone Allergy Intermediate Rash 07/03/20 Yes Uncoded Allergies Type Severity Reaction Last Updated Verified unknown old migrane med Allergy Unknown Unknown 07/11/16 Physical Exam: PE: Constitutional: Well developed, well nourished, no acute distress, non-toxic appearance. [] HENT: Normocephalic, atraumatic, bilateral external ears normal, oropharynx moist, no oral exudates, nose normal. [] Eyes: PERRLA, EOMI, conjunctiva normal, no discharge. [] Neck: Normal range of motion, no tenderness, supple, no stridor. [] Cardiovascular:Heart rate regular rhythm, no murmur [] Lungs & Thorax: Bilateral breath sounds clear to auscultation [] Abdomen: Bowel sounds normal, soft, no tenderness, no masses, no pulsatile masses. [] Skin: Warm, dry, no erythema, no rash. [] Back: No tenderness, no CVA tenderness. [] Extremities: There is no appreciable deformity noted. The patient does have some tenderness to the left shoulder on the postero-lateral aspect and she has decreased range of motion secondary to pain in this region with overhead movements. She has tenderness to the lateral aspect of the elbow and pain with range of motion. She has a small knot in the midshaft of the left forearm on the lateral aspect. She has tenderness to palpation of the left wrist. No crepitus is appreciated. Pulses are 2/4 bilaterally and sensation is normal. Neurologic: Alert and oriented X 3, normal motor function, normal sensory func tion, no focal deficits noted. [] Psychologic: Affect normal, judgement normal, mood normal. [] EKG: EKG: [] Radiology/Procedures: Radiology/Procedures: ED interpretation of left shoulder, left elbow, left wrist, left forearm x-rays are negative except for a mild subtle lucency at the distal aspect of the humerus that could represent an old fracture that is healing. Splinting: Patient placed in a sling of the left arm by nursing staff. Neurovascular intact post application. Patient tolerated well. Course & Med Decision Making: Course & Med Decision Making Will x-ray the patient's shoulder, elbow, wrist, forearm telemetry fracture. If negative place her in a sling and follow-up with orthopedics. 1746: Patient's x-rays are mostly benign except for a small lucency that could represent an old or subacute fracture that appears stable. Will place her in a sling and provide follow-up with orthopedics for ongoing left shoulder discomfort. Patient also be given an anti-inflammatory and pain medication. Dragon Disclaimer: Adria Disclaimer: This electronic medical record was generated, in whole or in part, using a voice recognition dictation system. Departure Departure: Impression: Primary Impression: Fall Additional Impressions: Rotator cuff injury Left elbow pain Left wrist pain Disposition: 01 HOME/RESIDENCE PRIOR TO ADM Condition: STABLE Referrals: JOSE M JACOBS MD Call for follow up appointment. Patient Instructions: Rotator Cuff Injury Scripts Tramadol Hcl (TRAMADOL HCL) 50 Mg Tablet 50 MG PO PRN Q6HRS PRN for PAIN for 3 Days, #12 TAB 0 Refills Prov: ALVA DOWNEY DO 07/03/20 Diclofenac Sodium (DICLOFENAC SODIUM) 75 Mg Tablet.dr 1 TAB PO BID for Pain for 10 Days, #20 TAB 1 Refill Prov: ALVA DOWNEY DO 07/03/20 Justification of Admission: Justification of Admission: Justification of Admission Dx: N/A ALVA DOWNEY DO Jul 03, 2020 17:23
[2020-07-03] MEDS ORDERED: DICL75TA PO (17:47)
[2020-07-03] MEDS ORDERED: TRAM50TA PO (17:47)
--- NOTE | 2020-07-03 18:03 | RAD ---
EXAM: 1. Left shoulder 3 views. 2. Left elbow 3 views. 3. Left forearm 2 views. 4. Left wrist 3 views. HISTORY: Fall with left upper extremity pain. COMPARISON: None. FINDINGS: No fractures are appreciated about the left shoulder. Glenohumeral joint spaces and alignment are maintained. There is some sclerosis and irregularity at the distal clavicular articular surface with preservation of joint spaces and alignment. No fractures are appreciated about the elbow. There is a tiny osteophyte along the coronoid process. Joint spaces and alignment are maintained. There is no joint effusion. No fractures are appreciated within the left forearm. No fractures are appreciated about the left wrist. Radiocarpal and intercarpal joint spaces and alignment are maintained. There is soft tissue swelling dorsally. IMPRESSION: 1. Soft tissue swelling dorsally at the wrist. No fractures are identified throughout. 2. 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 Correlate for repetitive trauma or inflammatory arthritides. Electronically signed by: Ari Mireles MD (07/03/2020 6:00 PM) [facility]
== END 2020-07-03 17:55 | disposition home or self-care (01) ==
LOC: ER 17:00
DX: S46.002A Unspecified injury of muscle(s) and tendon(s) of the rotator cuff of left shoulder, initial encounter (principal); M25.532 Pain in left wrist; M25.522 Pain in left elbow; I10 Essential (primary) hypertension; Z88.6 Allergy status to analgesic agent; Z88.5 Allergy status to narcotic agent; Z88.8 Allergy status to other drugs, medicaments and biological substances; W17.89XA Other fall from one level to another, initial encounter; Y93.89 Activity, other specified; Y92.89 Other specified places as the place of occurrence of the external cause; Y99.8 Other external cause status
CPT/HCPCS: 73030; 73080; 73090; 73110; 99284

== ENCOUNTER 2020-08-27 15:42 | Emergency (ER) | payer BC ==
[~2020-08-27] VITALS: Ht 160 cm; Wt 108.0 kg
[2020-08-27 15:42] VITALS: BP 132/92
[~2020-08-27 15:42] MED LIST changes: +DICL75TA PO; +TRAM50TA PO
--- NOTE | 2020-08-27 16:33 | PHYS DOC ---
Past History Past Medical History: Depression, Diabetes, Fibromyalgia, Hypertension Additional Past Medical Histor: anxierty Past Surgical History: , Hysterectomy Smoking: Non-smoker Alcohol Use: None Drug Use: None General Adult EDM: Chief Complaint: UPPER EXTREMITY PAIN HPI: HPI: 44-year-old female presents with left elbow pain. Patient was seen by my colleague in June after falling on her left arm. Her x-rays at that time were negative. Patient did follow-up with orthopedics and they felt like it was soft tissue. The patient continues to have discomfort. It is most pronounced with forced supination. It wakes her up from her sleep even though she takes sleep medication. She is just tired of it and would like reevaluation. She denies any new falls or trauma. Review of Systems: Review of Systems: Constitutional: Denies fever or chills Eyes: Denies change in visual acuity HENT: Denies nasal congestion or sore throat Respiratory: Denies cough or shortness of breath Cardiovascular: Denies chest pain or edema GI: Denies abdominal pain, nausea, vomiting, bloody stools or diarrhea : Denies dysuria Musculoskeletal: Left elbow pain Integument: Denies rash Neurologic: Denies headache, focal weakness or sensory changes Endocrine: Denies polyuria or polydipsia Lymphatic: Denies swollen glands Psychiatric: Denies depression or anxiety Allergies: Allergies: Allergies Coded Allergies Type Severity Reaction Last Updated Verified acetaminophen Allergy Intermediate Rash 07/03/20 Yes meperidine Allergy Intermediate Itching 07/03/20 Yes morphine Allergy Intermediate Itching 07/03/20 Yes oxycodone Allergy Intermediate Rash 07/03/20 Yes Uncoded Allergies Type Severity Reaction Last Updated Verified unknown old migrane med Allergy Unknown Unknown 07/11/16 Physical Exam: PE: Constitutional: Well developed, well nourished, no acute distress, non-toxic appearance. [] HENT: Normocephalic, atraumatic, bilateral external ears normal, oropharynx moist, no oral exudates, nose normal. [] Eyes: PERRLA, EOMI, conjunctiva normal, no discharge. [] Neck: Normal range of motion, no tenderness, supple, no stridor. [] Cardiovascular:Heart rate regular rhythm, no murmur [] Lungs & Thorax: Bilateral breath sounds clear to auscultation [] Abdomen: Bowel sounds normal, soft, no tenderness, no masses, no pulsatile masses. [] Skin: Warm, dry, no erythema, no rash. [] Back: No tenderness, no CVA tenderness. [] Extremities: Normal range of motion with discomfort at the left elbow, pain with forced supination. No obvious deformity or ecchymosis. [] Neurologic: Alert and oriented X 3, normal motor function, normal sensory function, no focal deficits noted. [] Psychologic: Affect normal, judgement normal, mood normal. [] EKG: EKG: [] Radiology/Procedures: Radiology/Procedures: [] Impressions: Exam: Left elbow 3 views INDICATION: Pain, worse since last x-ray TECHNIQUE: Frontal, lateral and oblique views of the left elbow Comparisons: 07/03/2020 FINDINGS: Bone mineralization is normal. No acute or healed fractures. Soft tissues are unremarkable. Joint spaces are well-maintained. IMPRESSION: No acute osseous abnormality Electronically signed by: Rahul Geronimo MD (08/27/2020 4:51 PM) [id number] DICTATED AND SIGNED BY: RAHUL GERONIMO MD DATE: 08/27/201650 CC: LILIANA NEAL DO; TIARA WHITLEY MD ~ Heart Score: Risk Factors: Risk Factors: DM, Current or recent (<one month) smoker, HTN, HLP, family history of CAD, obesity. Risk Scores: Score 0 - 3: 2.5% MACE over next 6 weeks - Discharge Home Score 4 - 6: 20.3% MACE over next 6 weeks - Admit for Clinical Observation Score 7 - 10: 72.7% MACE over next 6 weeks - Early Invasive Strategies Course & Med Decision Making: Course & Med Decision Making Pertinent Labs and Imaging studies reviewed. (See chart for details) The patient's elbow x-ray is negative for new or healed fracture. No acute findings. Not sure what is causing the patient discomfort. It could be impingement at the cubital tunnel or another area along the path of the nerves. The patient does have some shoulder arthritis and dysfunction was amended range of motion due to discomfort. These processes may be related. I advised the patient talk to her primary care physician about a consult with neurology. She is stable for discharge at this time. [] Dragon Disclaimer: Dragakiko Disclaimer: This electronic medical record was generated, in whole or in part, using a voice recognition dictation system. Departure Departure: Impression: Primary Impression: Left elbow pain Referrals: TIARA WHTILEY MD (PCP) Patient Instructions: Elbow Injury-Brief LILIANA NEAL DO Aug 27, 2020 16:33
--- NOTE | 2020-08-27 16:54 | RAD ---
Exam: Left elbow 3 views INDICATION: Pain, worse since last x-ray TECHNIQUE: Frontal, lateral and oblique views of the left elbow Comparisons: 07/03/2020 FINDINGS: Bone mineralization is normal. No acute or healed fractures. Soft tissues are unremarkable. Joint spaces are well-maintained. IMPRESSION: No acute osseous abnormality Electronically signed by: Rahul Robertson MD (08/27/2020 4:51 PM) [id number]
[2020-08-27] MEDS ORDERED: HYDR-3165 PO (17:18)
== END 2020-08-27 17:13 | disposition home or self-care (01) ==
LOC: ER 15:42
DX: M25.522 Pain in left elbow (principal); E11.9 Type 2 diabetes mellitus without complications; M79.7 Fibromyalgia; I10 Essential (primary) hypertension; Z88.6 Allergy status to analgesic agent; Z88.5 Allergy status to narcotic agent; Z88.8 Allergy status to other drugs, medicaments and biological substances; W18.39XA Other fall on same level, initial encounter; Y93.89 Activity, other specified; Y92.89 Other specified places as the place of occurrence of the external cause; Y99.8 Other external cause status
CPT/HCPCS: 73080; 99283

== ENCOUNTER 2021-05-17 19:24 | Emergency (ER) | payer BC, OTHER ==
[~2021-05-17] VITALS: Ht 160 cm; Wt 105.2 kg
[~2021-05-17 19:24] MED LIST changes: +HYDR-3165 PO; +LISI10TA16 PO; -LISI10TA2 PO
[2021-05-17] MEDS ORDERED: IV NORMAL SALINE 1,000ML 1,000 ML IV ONE (20:00)
--- NOTE | 2021-05-17 20:03 | PHYS DOC ---
Past History Past Medical History: Depression, Diabetes, Fibromyalgia, Hypertension Additional Past Medical Histor: anxierty (GRISELDA PATTON APRN) Past Surgical History: , Hysterectomy (GRISELDA PATTON APRN) Smoking: Non-smoker Alcohol Use: None Drug Use: None (GRISELDA PATTON APRN) General Adult EDM: Chief Complaint: DIZZY/LIGHT HEADED HPI: HPI: Patient is a 45-year-old female who presents to the ER today for tachycardia and hypotension. Patient reports that she has been dizzy when sitting or standing for the last 3 days. She reports that she has been monitoring her blood pressure and heart rate at home and her heart rate has been high and her blood pressure has been low at 110-120 systolic. Patient does take blood pressure medications at home. Patient reports that she has had this dizziness in the past but was never evaluated for it. Patient is also complaining of left hand pain. She reports that she hit her hand on her wooden dining room table and is having pain palm of her left hand. Patient denies shortness of breath, chest pain, nausea, vomiting, blurred vision. (GRISELDA PATTON APRN) Review of Systems: Review of Systems: 14 body systems of the review of systems have been reviewed. See HPI for pertinent positive and negative responses, otherwise all other systems are negative, nonpertinent or noncontributory (GRISELDA PATTON APRN) Allergies: Allergies: Allergies Coded Allergies Type Severity Reaction Last Updated Verified acetaminophen Allergy Intermediate Rash 07/03/20 Yes meperidine Allergy Intermediate Itching 07/03/20 Yes morphine Allergy Intermediate Itching 07/03/20 Yes oxycodone Allergy Intermediate Rash 07/03/20 Yes Uncoded Allergies Type Severity Reaction Last Updated Verified unknown old migrane med Allergy Unknown Unknown 07/11/16 (GRISELDA PATTON APRN) Physical Exam: PE: Constitutional: Well developed, well nourished, no acute distress, non-toxic appearance. [] HENT: Normocephalic, atraumatic Eyes: PERRLA, EOMI, 4 mm pupils, conjunctiva normal, no discharge. [] Neck: Normal range of motion, no stridor Cardiovascular:Heart rate tachycardic rhythm, rate of 110-125, no murmur [] Lungs & Thorax: Bilateral breath sounds clear to auscultation [] Abdomen: Bowel sounds normal, soft, no tenderness, no masses, no pulsatile masses. [] Skin: Warm, dry, no erythema, no rash. [] Back: Normal range of motion Extremities: No tenderness, no cyanosis, no clubbing, ROM intact, no edema. Left hand: No swelling, obvious deformity, range of motion intact, neuro intact, pain with palpation to palmar aspect of left hand proximal to fifth finger patient has small 0.5 cm area of firmness and swelling noted to the palmar aspect of her left hand. [] Neurologic: Alert and oriented X 3, normal motor function, normal sensory function, no focal deficits noted. [] Psychologic: Affect normal, judgement normal, patient appears anxious. [] (GRISELDA PATTON APRN) Current Patient Data: Labs: Laboratory Tests Test 05/17/21 20:10 White Blood Count 6.9 x10^3/uL Red Blood Count 4.63 x10^6/uL Hemoglobin 13.3 g/dL Hematocrit 41.0 % Mean Corpuscular Volume 89 fL Mean Corpuscular Hemoglobin 29 pg Mean Corpuscular Hemoglobin Concent 33 g/dL Red Cell Distribution Width 14.2 % Platelet Count 298 x10^3/uL Neutrophils (%) (Auto) 59 % Lymphocytes (%) (Auto) 31 % Monocytes (%) (Auto) 9 % Eosinophils (%) (Auto) 1 % Basophils (%) (Auto) 1 % Neutrophils # (Auto) 4.0 x10^3uL Lymphocytes # (Auto) 2.1 x10^3/uL Monocytes # (Auto) 0.6 x10^3/uL Eosinophils # (Auto) 0.0 x10^3/uL Basophils # (Auto) 0.0 x10^3/uL Sodium Level 140 mmol/L Potassium Level 4.3 mmol/L Chloride Level 101 mmol/L Carbon Dioxide Level 28 mmol/L Anion Gap 11 Blood Urea Nitrogen 13 mg/dL Creatinine 0.9 mg/dL Estimated GFR (Cockcroft-Gault) 67.4 Glucose Level 152 mg/dL Calcium Level 8.9 mg/dL Troponin I Quantitative < 0.017 ng/mL Current Medications Medications (Trade) Dose Ordered Sig/Shweta Route PRN Reason Start Time Stop Time Status Last Admin Dose Admin Sodium Chloride 1,000 ml @ 1,000 mls/hr 1X ONCE IV 05/17/21 20:00 05/17/21 20:59 DC 05/17/21 20:34 Vital Signs: Vital Signs Date Time Temp Pulse Resp B/P (MAP) Pulse Ox O2 Delivery O2 Flow Rate FiO2 05/17/21 19:41 98.5 116 18 125/78 (94) 96 Room Air (GRISELDA PATTON APRN) EKG: EKG: EKG performed by ER staff at 2019 shows sinus tachycardia, no STEMI as read by Dr. Abdi[] (GRISELDA PATTON APRN) Radiology/Procedures: Radiology/Procedures: PROCEDURE: HAND LEFT 3V Left hand x-rays 3 views HISTORY: Left hand injury and pain. FINDINGS: No fracture. No dislocation. No arthritic change. No bone lesion. Soft tissues are unremarkable. IMPRESSION: Normal exam. Electronically signed by: Niles Alejandra MD (05/17/2021 8:21 PM) [facility] DICTATED AND SIGNED BY: NILES ALEJANDRA MD DATE: 05/17/212018 CC: EMERGENCY,DEPARTMENT; GRISELDA PATTON APRN; TIARA WHITLEY MD ~MTH0 0 [] PROCEDURE: CHEST AP ONLY Chest AP portable at 2125: Reason for examination: Dizziness. Comparison is made to previous study dated 10/12/2018. The heart size is normal. Mediastinum is unremarkable. Lung mcneill are clear. No acute bony abnormalities are seen. Impression: No acute cardiopulmonary disease. Electronically signed by: Adriana Vasquez MD (05/17/2021 9:43 PM) [facility] DICTATED AND SIGNED BY: ADRIANA VASQUEZ MD DATE: 05/17/212142 CC: GRISELDA PATTON APRN; TIARA WHITLEY MD ~MTH0 0 (GRISELDA PATTON APRN) Heart Score: C/O Chest Pain: No Risk Factors: Risk Factors: DM, Current or recent (<one month) smoker, HTN, HLP, family history of CAD, obesity. Risk Scores: Score 0 - 3: 2.5% MACE over next 6 weeks - Discharge Home Score 4 - 6: 20.3% MACE over next 6 weeks - Admit for Clinical Observation Score 7 - 10: 72.7% MACE over next 6 weeks - Early Invasive Strategies (GRISELDA PATTON APRN) Course & Med Decision Making: Course & Med Decision Making Pertinent Labs and Imaging studies reviewed. (See chart for details) [] Patient is a 45-year-old female being seen for dizziness, tachycardia, hypotension. Work-up in the ER consisted of blood work, orthostatic vital signs, EKG. Patient was also complaining of left hand pain and x-ray was performed. Hand x-ray was negative for any acute findings. Patient negative for orthostatic hypotension. CBC, BMP unremarkable. Chest x-ray negative for any acute findings. UA positive for urinary tract infection. Patient given first dose of antibiotic in the ER today. Patient treated in the ER with a liter of normal saline. I discussed with patient all findings and diagnostic testing as well as the need to follow-up with PCP for further evaluation and treatment or return to the ER if any new or worsening symptoms. Strict return precautions were also discussed at length. Patient voiced understanding and agreement with the plan. Patient is hemodynamically stable at the time of disposition. (GRISELDA PATTON APRN) Course & Med Decision Making Did not see or evaluate patient. Agree with [employer] GRINDER's work-up and disposition per note (PERRI ABDI MD) Dragon Disclaimer: Dragon Disclaimer: This electronic medical record was generated, in whole or in part, using a voice recognition dictation system. (GRISELDA PATTON APRN) Departure Departure: Impression: Primary Impression: Urinary tract infection Qualified Codes: N30.00 - Acute cystitis without hematuria Additional Impression: Dizziness Disposition: HOME / SELF CARE / HOMELESS Condition: GOOD Referrals: TIARA WHITLEY MD (PCP) Patient Instructions: Dizziness, Urinary Tract Infection Additional Instructions: You're seen in the ER today for dizziness, tachycardia, hypotension. Your physical exam was reassuring. You were stable with mild tachycardia and no hypotension. It is possible that you have a bad blood pressure cuff. Please purchase a new BP cuff. As we discussed, you were negative for something we call orthostatic hypotension. If you continue to be dizzy with position changes please change positions slowly so you do not fall. Make sure that you're drinking plenty of fluids as dehydration is a common cause of dizziness. We performed an x-ray of your left hand and it was negative for any fractures. As we discussed your blood work was unremarkable. Your urinalysis was positive for a urinary tract infection. We treated this with a antibiotic. You were given your first dose in the ER today. Antibiotic was sent to your pharmacy of choice. Please start and finish it completely. Since you do have a UTI, please avoid bladder irritants like caffeine, alcohol, sugary beverages. You can take ibuprofen for any pains. If you develop worsening of your dizziness, chest pain, palpitations, syncope, high fevers refractory to treatment, uncontrollable nausea or vomiting, shortness of breath please return to the ER immediately. EMERGENCY DEPARTMENT GENERAL DISCHARGE INSTRUCTIONS Thank you for coming to [facility] ([facility]) today and trusting us with you care. We trust that you had a positivie experience in our Emergency Department. If you wish to speak to the department management, you may call the director at [phone]. YOUR FOLLOW UP INSTRUCTIONS ARE FOLLOWS: 1. Do you have a private Doctor? If you do not have a private doctor, please ask for a resource list of physicians or clinics that may be able to assist you with fol low up care. 2. The Emergency Physician has interpreted your x-rays. The X-Ray specialist will also review them. If there is a change in the findings, you will be notified in 48 hours when at all possible. 3. A lab test or culture has been done, your results will be reviewed and you will be notified if you need a change in treatment. ADDITIONAL INSTRUCTIONS AND INFORMATION: 1. Your care today has been supervised by a physician who is specially trained in emergency care. Many problems require more than one evaluation for a complete diagnosis and treatment. We recommend that you schedule your follow up appointment as r ecommended to ensure complete treatment of you illness or injury. If you are unable to obtain follow up care and continue to have a problem, or if your condition worsens, we recommend that you return to the ED. 2. We are not able to safely determine your condition over the phone nor are we able to give sound medical advice over the phone. For these safety reasons, if you call for medical advice we will ask you to come to the ED for further evaluation. 3. If you have any questions regarding these discharge instructions please call the ED at [phone]. SAFETY INFORMATION: In the interest of safety, wellness, and injury prevention; we encourage you to wear your sealbelt, if you smoke; quite smoking, and we encourage family to use a protective helmet for bicycling and other sporting events that present an increased risk for head injury. IF YOUR SYMPTOMS WORSEN OR NEW SYMPTOMS DEVELOP, OR YOU HAVE CONCERNS ABOUT YOUR CONDITION; OR IF YOUR CONDITION WORSENS WHILE YOU ARE WAITING FOR YOUR FOLLOW UP APPOINTMENT; EITHER CONTACT YOUR PRIMARY CARE DOCTOR, THE PHYSICIAN WHOSE NAME AND NUMBER YOU WERE GIVEN, OR RETURN TO THE ED IMMEDIATELY. Scripts Cephalexin (CEPHALEXIN) 500 Mg Tablet 1 TAB PO BID for uti for 6 Days, #12 TAB 0 Refills Prov: GRISELDA PATTON APRN 05/17/21 GRISELDA PATTON APRN May 17, 2021 20:03 PERRI ABDI MD May 17, 2021 22:23
--- NOTE | 2021-05-17 20:24 | RAD ---
Left hand x-rays 3 views HISTORY: Left hand injury and pain. FINDINGS: No fracture. No dislocation. No arthritic change. No bone lesion. Soft tissues are unremark able. IMPRESSION: Normal exam. Electronically signed by: Raleigh Alejandra MD (05/17/2021 8:21 PM) [facility]
[2021-05-17 20:39] LABS: BASO % 1 % (0-3); EOS % 1 % (0-3); HEMOGLOBIN 13.3 g/dL (12.0-15.5); LYMPH # 2.1 x10^3/uL (1.0-4.8); LYMPH % 31 % (24-48); MEAN CORPUSCULAR HEMOGLOBIN 29 pg (25-35); MEAN CORPUSCULAR HGB CONC 33 g/dL (31-37); MEAN CORPUSCULAR VOLUME 89 fL (79-100); MONO # 0.6 x10^3/uL (0.0-1.1); MONO % 9 % (0-9); NEUT % 59 % (31-73); PLATELET COUNT 298 x10^3/uL (140-400); RED BLOOD COUNT 4.63 x10^6/uL (3.50-5.40); RED CELL DISTRIBUTION WIDTH 14.2 % (11.5-14.5); WHITE BLOOD COUNT 6.9 x10^3/uL (4.0-11.0)
[2021-05-17 20:46] LABS: CALCIUM 8.9 mg/dL (8.5-10.1); CREATININE 0.9 mg/dL (0.6-1.0); GFR 67.4; POTASSIUM 4.3 mmol/L (3.5-5.1)
[2021-05-17 21:18] LABS: BILIRUBIN,URINE NEG (NEG); CLARITY,URINE CLEAR; COLOR,URINE STRAW; GLUCOSE,URINE >=1000 mg/dL (NEG); NITRITE,URINE POS (NEG); UROBILINOGEN,URINE 0.2 mg/dL (0.2 mg/dL)
[2021-05-17 21:19] LABS: BACTERIA,URINE MOD /HPF (0-FEW); RBC,URINE 0 /HPF (0-2); SQUAMOUS EPITHELIAL CELL,UR FEW /LPF
[2021-05-17] MEDS ORDERED: CEPH500T PO (21:27)
[2021-05-17] MEDS ORDERED: NITROFURANTOIN MONOHYD/M-CRYST 100 MG CAPSULE. PO ONE (21:30)
[2021-05-17 21:36] VITALS: BP 120/71
--- NOTE | 2021-05-17 21:46 | RAD ---
Chest AP portable at 2126: Reason for examination: Dizziness. Comparison is made to previous study dated 10/12/2018. The heart size is normal. Mediastinum is unremarkable. Lung mcneill are clear. No acute bony abnormali ties are seen. Impression: No acute cardiopulmonary disease. Electronically signed by: Yoli Lopes MD (05/17/2021 9:43 PM) [facility]
[2021-05-17] MEDS ORDERED: CEPHALEXIN 250 MG CAPSULE PO ONE (22:00)
--- NOTE | 2021-05-18 03:02 | EKG ---
[address] [address] Test Date: 2021-05-17 Test Time: 20:20:26 Pat Name: MULU LEE Department: Room: Gender: F Fleet Assistant: LESVIA : 1975 Requested By: GRISELDA PATTON Order Number: [id number] Reading MD: Measurements Intervals [place] Rate: 106 P: 30 LA: 170 QRS: -49 QRSD: 86 T: 15 QT: 332 QTc: 443 Interpretive Statements SINUS TACHYCARDIA ABNORMAL LEFT AXIS DEVIATION R-S TRANSITION ZONE IN V LEADS DISPLACED TO THE LEFT LEFT ANTERIOR FASCICULAR BLOCK ABNORMAL ECG RI6.02 No previous ECG available for comparison
== END 2021-05-17 22:08 | disposition home or self-care (01) ==
LOC: ER 19:24
DX: R42 Dizziness and giddiness (principal); N39.0 Urinary tract infection, site not specified; M79.642 Pain in left hand; E11.9 Type 2 diabetes mellitus without complications; I10 Essential (primary) hypertension; Z90.710 Acquired absence of both cervix and uterus; Z88.6 Allergy status to analgesic agent; Z88.5 Allergy status to narcotic agent
CPT/HCPCS: 36415; 71045; 73130; 80048; 81001; 84484; 85025; 87086; 93005; 96360; 99285; J7030

== ENCOUNTER → 2021-08-03 | Outpatient (CLI) | payer OTHER ==
[~2021-08-03] MED LIST changes: +CEPH500T PO
--- NOTE | 2021-08-03 16:26 | RAD ---
EXAM: 3 Views Left Shoulder DATE: 08/03/2021 9:04 AM INDICATION: Reason: LEFT ARM PAIN, DISABILITY DETERMINATION / Spl. Instructions: / History: COMPARISON: No Prior FINDINGS: There is no evidence for acute fracture or dislocation. AC joint is congruent. AC joint degenerative changes are seen. Small glenoid rim osteophytes are seen. Humeral head is not high riding. IMPRESSION: 1. No acute fracture or dislocation. 2. 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 Electronically signed by: Jose Angel Villarreal MD (08/03/2021 4:24 PM) [id number]
--- NOTE | 2021-08-03 16:27 | RAD ---
EXAM: 2 views of the left elbow DATE: 08/03/2021 9:04 AM INDICATION: Reason: LEFT ARM PAIN, DISABILITY DETERMINATION / Spl. Instructions: / History: COMPARISON: No Prior FINDINGS: No elbow joint effusion. No acute fracture or dislocation. Joint spaces are grossly preserved without significant proliferative change. No significant soft tissue swelling. IMPRESSION: No acute fracture or dislocation. Electronically signed by: Jose Angel Villarreal MD (08/03/2021 4:24 PM) [id number]
== END ==
LOC: RAD 08:51
PROVIDERS: ATTEND Family Medicine
DX: M19.012 Primary osteoarthritis, left shoulder (principal)
CPT/HCPCS: 73030; 73070